=== PATIENT | female | born 1985 | race Hispanic/Latino ===

== ENCOUNTER 2021-09-19 17:43 | Inpatient (IN) | payer BC ==
[~2021-09-19] VITALS: Ht 160 cm; Wt 85.3 kg
[2021-09-19] MEDS ORDERED: DIAZEPAM 5 MG/ML 2 ML SYG IV PRN (19:30)
[2021-09-19] MEDS ORDERED: LACTATED RINGERS 1000ML 1,000 ML IV PRN (19:30)
[2021-09-19] MEDS ORDERED: ONDANSETRON 4MG INJ IVP PRN (19:30)
[2021-09-19] MEDS ORDERED: MEPERIDINE-PF 100 MG/ML SYG IVP PRN (19:30)
[2021-09-19] MEDS ORDERED: MEPERIDINE-PF 50 MG/ML SYG IVP PRN (19:30)
[2021-09-19] MEDS ORDERED: PROMETHAZINE HCL 25 MG/ML 1ML AMPULE IM PRN (19:30)
[2021-09-19 20:06] LABS: APPEARANCE,URINE Clear (CLEAR); BILIRUBIN,URINE Negative (NEGATIVE); COLOR,URINE Yellow (YELLOW); GLUCOSE, URINE (UA) Negative (NEGATIVE); KETONES,URINE Negative (NEGATIVE); LEUKOCYTE ESTERASE ,URINE Negative (NEGATIVE); NITRATE,URINE Negative (NEGATIVE); OCCULT BLOOD,URINE Negative (NEGATIVE); PH,URINE 5.5 (5.0-8.0); PROTEIN,URINE Negative (NEGATIVE); UROBILINOGEN,URINE 0.2 mg/dL (0.2-1.0)
[2021-09-19 20:47] LABS: MEAN CORPUSCULAR HEMOGLOBIN 27.8 pg (27.0-33.0); MEAN CORPUSCULAR HGB CONC 32.3 g/dL (32.0-36.0); MEAN CORPUSCULAR VOLUME 86.1 fL (79-99); RED BLOOD CELL COUNT(AUTO) 4.53 MIL/uL (4.00-5.50); RED CELL DISTRIBUTION WIDTH 13.5 % (11.0-15.5); WHITE BLOOD COUNT (AUTO) 8.5 K/uL (4.8-10.8)
[2021-09-19 20:58] LABS: PARTIAL THROMBOPLASTIN TIME 26.5 SEC (26.3-35.5)
[2021-09-19] MEDS ORDERED: LACTATED RINGERS 1000ML 1,000 ML IV SCH (21:00)
[2021-09-20] MEDS: MISOPROSTOL 200 MCG TABLET PO SCH ×3 (01:15→05:10)
[2021-09-20] MEDS ORDERED: BUTORPHANOL TARTRATE 2 MG/ML IVP PRN (02:00)
[2021-09-20] MEDS ORDERED: ACETAMINOPHEN 325 MG TAB PO PRN ×2 (02:00→08:30)
[2021-09-20] MEDS ORDERED: DiphenhydrAMINE HCL 50 MG/ML VIAL IV ONE (02:00)
[2021-09-20] MEDS ORDERED: OXYTOCIN-LR 20 UNITS/1000 ML 1,000 ML IV ONE ×2 (02:19→08:07)
[2021-09-20] MEDS ORDERED: OXYTOCIN 10 UNIT/1ML 10ML VIAL IV ONE (05:30)
[2021-09-20] MEDS ORDERED: METHYLERGONOVINE MALEATE 0.2 MG/1 ML ML IM ONE (05:30)
[2021-09-20] MEDS ORDERED: LACTATED RINGERS 1000ML 1,000 ML IV SCH (05:30)
[2021-09-20] MEDS ORDERED: CARBOPROST TROMETHAMINE 250 MCG/ML AMP IM SCH (06:49)
[2021-09-20] MEDS ORDERED: SUCCINYLCHOLINE CHLORIDE 20 MG/ML 10 ML VIAL ONE (07:15)
[2021-09-20] MEDS ORDERED: LIDOCAINE PF 100MG/5ML (2%) SYRINGE 5ML ONE (07:15)
[2021-09-20] MEDS ORDERED: MIDAZOLAM HCL 1 MG/ML 2ML VIAL ONE (07:16)
[2021-09-20] MEDS ORDERED: PROPOFOL 10 MG/ML 20ML VIAL IV ONE (07:16)
[2021-09-20] MEDS ORDERED: ROCURONIUM 10MG/1ML SYR 10 MG/ML ML ONE (07:16)
[2021-09-20] MEDS ORDERED: FENTANYL CITRATE PF 50 MCG/1 ML 2ML VIAL ONE (07:16)
[2021-09-20] MEDS ORDERED: PHENYLEPHRINE HCL 10 MG/ML 1ML VIAL IV ONE (07:35)
[2021-09-20] MEDS ORDERED: ONDANSETRON 4MG INJ ONE (08:10)
[2021-09-20] MEDS ORDERED: BENZOCAINE/LANOLIN/ALOE VERA 60 ML AEROSOL TP PRN (08:30)
[2021-09-20] MEDS ORDERED: IBUPROFEN 600 MG TABLET PO PRN (08:30)
[2021-09-20] MEDS ORDERED: LANOLIN 30GM OINTMENT TP PRN (08:30)
[2021-09-20] MEDS ORDERED: ACETAMINOPHEN WITH CODEINE 1 TAB TAB PO PRN (08:30)
[2021-09-20] MEDS ORDERED: DIPH,PERTUSS(ACELL),TET VAC/PF 0.5 ML VIAL IM PRN (08:30)
[2021-09-20] MEDS ORDERED: OXYTOCIN-LR 20 UNITS/1000 ML 1,000 ML IV SCH (08:30)
[2021-09-20] MEDS ORDERED: MEASLES/MUMPS/RUBELLA VACCINE, LIVE 0.5 ML/VIAL SQ PRN (08:30)
[2021-09-20] MEDS ORDERED: WITCH HAZEL 1 PAD TP PRN (08:30)
[2021-09-20] MEDS ORDERED: DOCUSATE SODIUM 100 MG CAP PO SCH (09:00)
[2021-09-20 11:20] VITALS: BP 99/53
[2021-09-20 16:21] VITALS: BP 112/56
[2021-09-20] MEDS ORDERED: PNV1TABL17 PO (16:41)
== END 2021-09-20 17:35 | disposition home or self-care (01) | DRG 770 ==
LOC: OBSVTOIN 17:43 → LDH 17:43 → WSH 09-20 10:07
PROVIDERS: ADMIT Obstetrics & Gynecology; ATTEND Obstetrics & Gynecology
PROC: 10A07ZX Abortion of Products of Conception, Abortifacient, Via Natural or Artificial Opening (ICD-10-PCS; 2021-09-20)
PROC: 10D17ZZ Extraction of Products of Conception, Retained, Via Natural or Artificial Opening (ICD-10-PCS; principal; 2021-09-20 07:23)
DX: O03.4 Incomplete spontaneous abortion without complication (principal); Z3A.17 17 weeks gestation of pregnancy; Z88.8 Allergy status to other drugs, medicaments and biological substances
CPT/HCPCS: 36415; 81003; 85027; 85384; 85730; 86592; 86850; 86900; 86901; 87340; A4351; G0378; J0330; J0595; J1200; J2001; J2175; J2250; J2370; J2405; J2550; J2590; J2704; J3010; J3360; J7030; J7120